=== PATIENT | male | born 1965 | race Caucasian/White ===

== ENCOUNTER 2021-08-11 13:38 | Inpatient (IN) | payer OTHER ==
[2021-08-11 14:00] VITALS: BMI 34.5
[2021-08-11] MEDS ORDERED: ONDANSETRON *ODT* 4 MG TABLET SL PRN (14:44)
[2021-08-11] MEDS ORDERED: MAG HYDROX/AL HYDROX/SIMETH 30 ML UNIT-DOSE CUP PO PRN (14:44)
[2021-08-11] MEDS ORDERED: BISMUTH SUBSALICYLATE 524 MG/30 ML PO PRN (14:44)
[2021-08-11] MEDS ORDERED: MAGNESIUM HYDROX 2400MG/30ML ORAL SUSPENSION 30 ML CUP PO PRN (14:44)
[2021-08-11] MEDS ORDERED: MENTHOL/PHENOL 1 EACH UD MM PRN (14:44)
[2021-08-11] MEDS ORDERED: ACETAMINOPHEN 325 MG TABLET (FP) PO PRN ×2 (14:44)
[2021-08-11] MEDS ORDERED: MAGNESIUM CITRATE 300 ML BOTTLE PO PRN (14:44)
[2021-08-11] MEDS: PRENATAL VITAMINS W/ FOLIC ACID TABLET (FP) PO SCH (18:35)
[2021-08-11] MEDS: hydrOXYzine PAMOATE 25 MG CAPSULE (FP) PO SCH ×2 (18:36→22:28)
[2021-08-11] MEDS: IBUPROFEN 400 MG TABLET (FP) PO PRN (22:27)
[2021-08-11] MEDS: MELATONIN 5 MG TABLETS PO SCH (22:28)
[2021-08-11] MEDS: METHOCARBAMOL 500 MG TABLET PO PRN (22:28)
[2021-08-11] MEDS: THIAMINE HCL 100 MG TABLET (FP) PO SCH (22:28)
[2021-08-12] MEDS ORDERED: methaDONE HCL 40 MG DISPERSABLE TABLET PO SCH (06:00)
[2021-08-12] MEDS ORDERED: cloNIDine HCL 0.1 MG TABLET PO ONE (07:00)
[2021-08-12] MEDS: hydrOXYzine PAMOATE 25 MG CAPSULE (FP) PO SCH (07:04)
[2021-08-12] MEDS ORDERED: methaDONE HCL 40 MG DISPERSABLE TABLET PO ONE (08:53)
[2021-08-12] MEDS: LISINOPRIL 20 MG TABLET PO SCH (09:55)
[2021-08-12] MEDS: NYSTATIN POWDER 100,000 UNITS/GM - 15 GM TOPICAL POWDER TP SCH (09:55)
[2021-08-12] MEDS: PRENATAL VITAMINS W/ FOLIC ACID TABLET (FP) PO SCH (09:56)
[2021-08-12] MEDS: CARVEDILOL PHOSPHATE CR 10 MG CAPSULE PO SCH (09:56)
[2021-08-12] MEDS ORDERED: methaDONE HCL 10 MG TABLET (FOR DETOX USE ONLY) PO SCH (10:00)
[2021-08-12 10:16] LABS: HEMATOCRIT 43.5 % (35.4-49); HEMOGLOBIN 14.7 GM/dL (11.7-16.9); MCH 32.3 pg (25.7-33.7); MCHC 33.9 g/dl (32.0-35.9); MEAN CELL VOLUME 95.4 fl (80-96); MEAN PLT VOLUME 10.1 fl (7.5-11.1); PLATELET COUNT 83 10^3/uL (134-434); RBC 4.56 M/mm3 (4.00-5.60); WHITE BLOOD COUNT 4.3 K/mm3 (4.0-10.0)
[2021-08-12] MEDS ORDERED: diazePAM 5 MG TABLET PO PRN (10:35)
[2021-08-12] MEDS: diazePAM 5 MG TABLET PO SCH ×3 (11:03→22:20)
[2021-08-12 11:05] LABS: ALBUMIN 3.1 g/dl (3.4-5.0)
[2021-08-12 11:06] LABS: BLOOD UREA NITROGEN 11.5 mg/dL (7-18)
[2021-08-12 11:08] LABS: CREATININE 0.6 mg/dL (0.55-1.3)
[2021-08-12 11:10] LABS: BILIRUBIN,TOTAL 1.3 mg/dL (0.2-1)
[2021-08-12 11:46] LABS: CALCIUM 8.7 mg/dL (8.5-10.1)
[2021-08-12] MEDS ORDERED: LIDOCAINE 5% TOPICAL PATCH TP ONE (12:08)
[2021-08-12] MEDS: IBUPROFEN 400 MG TABLET (FP) PO PRN (17:19)
[2021-08-12] MEDS: METHOCARBAMOL 500 MG TABLET PO PRN (17:20)
[2021-08-12] MEDS: traZODone HCL 50 MG TABLET (FP) PO SCH (22:19)
[2021-08-12] MEDS: hydrOXYzine PAMOATE 25 MG CAPSULE (FP) PO PRN (22:19)
[2021-08-12] MEDS: QUEtiapine FUMARATE 50 MG TABLET PO SCH (22:19)
[2021-08-12] MEDS: THIAMINE HCL 100 MG TABLET (FP) PO SCH (22:20)
[2021-08-12] MEDS: MELATONIN 5 MG TABLETS PO SCH (22:20)
[2021-08-12] MEDS: LIDOCAINE PATCH REMOVAL MC SCH (22:20)
[2021-08-13] MEDS: diazePAM 5 MG TABLET PO SCH ×4 (06:12→22:32)
[2021-08-13] MEDS: methaDONE HCL 40 MG DISPERSABLE TABLET PO SCH (06:12)
[2021-08-13] MEDS: IBUPROFEN 400 MG TABLET (FP) PO PRN (06:18)
[2021-08-13] MEDS ORDERED: cloNIDine HCL 0.1 MG TABLET PO ONE (07:32)
[2021-08-13] MEDS ORDERED: PENICILLIN G BENZATHINE 2,400,000 UNIT/4 ML PFS IM ONE (09:22)
[2021-08-13] MEDS: POLYETHYLENE GLYCOL (HEALTHYLAX) 3350 17 GM PACKET PO SCH (10:36)
[2021-08-13] MEDS: LIDOCAINE 5% TOPICAL PATCH TP SCH (10:37)
[2021-08-13] MEDS: NYSTATIN POWDER 100,000 UNITS/GM - 15 GM TOPICAL POWDER TP SCH (10:37)
[2021-08-13] MEDS: LISINOPRIL 20 MG TABLET PO SCH (10:38)
[2021-08-13] MEDS: CARVEDILOL PHOSPHATE CR 10 MG CAPSULE PO SCH (10:39)
[2021-08-13] MEDS: PRENATAL VITAMINS W/ FOLIC ACID TABLET (FP) PO SCH (10:53)
[2021-08-13] MEDS: TOLNAFTATE 1% CREAM 15 GM TUBE TP SCH ×2 (10:53→22:32)
[2021-08-13] MEDS: QUEtiapine FUMARATE 50 MG TABLET PO SCH (22:31)
[2021-08-13] MEDS: traZODone HCL 50 MG TABLET (FP) PO SCH (22:31)
[2021-08-13] MEDS: MELATONIN 5 MG TABLETS PO SCH (22:31)
[2021-08-13] MEDS: THIAMINE HCL 100 MG TABLET (FP) PO SCH (22:31)
[2021-08-13] MEDS: METHOCARBAMOL 500 MG TABLET PO PRN (22:34)
[2021-08-13] MEDS: hydrOXYzine PAMOATE 25 MG CAPSULE (FP) PO PRN (22:34)
[2021-08-13] MEDS: NICOTINE 10 MG CARTRIDGE (INHALER) IH PRN (22:35)
[2021-08-13] MEDS: LIDOCAINE PATCH REMOVAL MC SCH (22:58)
[2021-08-14] MEDS: diazePAM 5 MG TABLET PO SCH ×3 (06:24→22:59)
[2021-08-14] MEDS: methaDONE HCL 40 MG DISPERSABLE TABLET PO SCH (06:24)
[2021-08-14] MEDS: LISINOPRIL 20 MG TABLET PO SCH (10:46)
[2021-08-14] MEDS: POLYETHYLENE GLYCOL (HEALTHYLAX) 3350 17 GM PACKET PO SCH (10:47)
[2021-08-14] MEDS: CARVEDILOL PHOSPHATE CR 10 MG CAPSULE PO SCH (10:47)
[2021-08-14] MEDS: PRENATAL VITAMINS W/ FOLIC ACID TABLET (FP) PO SCH (10:47)
[2021-08-14] MEDS: TOLNAFTATE 1% CREAM 15 GM TUBE TP SCH ×2 (10:49→23:07)
[2021-08-14] MEDS: LIDOCAINE 5% TOPICAL PATCH TP SCH (11:18)
[2021-08-14] MEDS: NYSTATIN POWDER 100,000 UNITS/GM - 15 GM TOPICAL POWDER TP SCH (11:19)
[2021-08-14] MEDS: NICOTINE 10 MG CARTRIDGE (INHALER) IH PRN ×2 (14:14→23:05)
[2021-08-14] MEDS: METHOCARBAMOL 500 MG TABLET PO PRN ×2 (14:15→23:02)
[2021-08-14] MEDS: LIDOCAINE PATCH REMOVAL MC SCH (23:00)
[2021-08-14] MEDS: MELATONIN 5 MG TABLETS PO SCH (23:00)
[2021-08-14] MEDS: traZODone HCL 50 MG TABLET (FP) PO SCH (23:00)
[2021-08-14] MEDS: THIAMINE HCL 100 MG TABLET (FP) PO SCH (23:00)
[2021-08-14] MEDS: QUEtiapine FUMARATE 50 MG TABLET PO SCH (23:00)
[2021-08-14] MEDS: IBUPROFEN 400 MG TABLET (FP) PO PRN (23:02)
[2021-08-15] MEDS: diazePAM 5 MG TABLET PO SCH ×2 (06:10→18:12)
[2021-08-15] MEDS: methaDONE HCL 40 MG DISPERSABLE TABLET PO SCH (06:10)
[2021-08-15] MEDS: PRENATAL VITAMINS W/ FOLIC ACID TABLET (FP) PO SCH (10:20)
[2021-08-15] MEDS: LIDOCAINE 5% TOPICAL PATCH TP SCH (10:20)
[2021-08-15] MEDS: METHOCARBAMOL 500 MG TABLET PO PRN (10:20)
[2021-08-15] MEDS: POLYETHYLENE GLYCOL (HEALTHYLAX) 3350 17 GM PACKET PO SCH (10:21)
[2021-08-15] MEDS: TOLNAFTATE 1% CREAM 15 GM TUBE TP SCH ×2 (10:21→22:24)
[2021-08-15] MEDS: CARVEDILOL PHOSPHATE CR 10 MG CAPSULE PO SCH (10:21)
[2021-08-15] MEDS: LISINOPRIL 20 MG TABLET PO SCH (10:21)
[2021-08-15] MEDS: NYSTATIN POWDER 100,000 UNITS/GM - 15 GM TOPICAL POWDER TP SCH (10:23)
[2021-08-15] MEDS: NICOTINE 10 MG CARTRIDGE (INHALER) IH PRN (18:12)
[2021-08-15] MEDS: QUEtiapine FUMARATE 50 MG TABLET PO SCH (22:22)
[2021-08-15] MEDS: MELATONIN 5 MG TABLETS PO SCH (22:23)
[2021-08-15] MEDS: LIDOCAINE PATCH REMOVAL MC SCH (22:23)
[2021-08-15] MEDS: THIAMINE HCL 100 MG TABLET (FP) PO SCH (22:23)
[2021-08-15] MEDS: traZODone HCL 50 MG TABLET (FP) PO SCH (22:23)
[2021-08-16] MEDS ORDERED: diazePAM 5 MG TABLET PO ONE (06:00)
[2021-08-16] MEDS: methaDONE HCL 40 MG DISPERSABLE TABLET PO SCH (06:19)
[2021-08-16] MEDS: METHOCARBAMOL 500 MG TABLET PO PRN (06:20)
[2021-08-16 09:27] VITALS: BP 150/80; PULSE 76; TEMP 96.9
[2021-08-16] MEDS: POLYETHYLENE GLYCOL (HEALTHYLAX) 3350 17 GM PACKET PO SCH (10:00)
[2021-08-16] MEDS: TOLNAFTATE 1% CREAM 15 GM TUBE TP SCH (10:00)
[2021-08-16] MEDS: CARVEDILOL PHOSPHATE CR 10 MG CAPSULE PO SCH (10:00)
[2021-08-16] MEDS: NYSTATIN POWDER 100,000 UNITS/GM - 15 GM TOPICAL POWDER TP SCH (10:00)
[2021-08-16] MEDS: LISINOPRIL 20 MG TABLET PO SCH (10:00)
[2021-08-16] MEDS: LIDOCAINE 5% TOPICAL PATCH TP SCH (10:00)
[2021-08-16] MEDS: PRENATAL VITAMINS W/ FOLIC ACID TABLET (FP) PO SCH (10:00)
== END 2021-08-16 10:33 | disposition home or self-care (01) | DRG 773 ==
LOC: YASAS 13:38 → Y3N 16:08
PROVIDERS: ADMIT Allergy & Immunology; ATTEND Allergy & Immunology
PROC: HZ2ZZZZ Detoxification Services for Substance Abuse Treatment (ICD-10-PCS; principal; 2021-08-11)
DX: F11.23 Opioid dependence with withdrawal (principal); F10.230 Alcohol dependence with withdrawal, uncomplicated; F17.210 Nicotine dependence, cigarettes, uncomplicated; F19.24 Other psychoactive substance dependence with psychoactive substance-induced mood disorder; I25.10 Atherosclerotic heart disease of native coronary artery without angina pectoris; I10 Essential (primary) hypertension; E78.5 Hyperlipidemia, unspecified; A53.0 Latent syphilis, unspecified as early or late; M41.9 Scoliosis, unspecified; Z98.61 Coronary angioplasty status; Z86.19 Personal history of other infectious and parasitic diseases; Z99.89 Dependence on other enabling machines and devices
CPT/HCPCS: 36415; 80053; 85027; 86593; 86780; C9803; J0735; U0003; U0005